=== PATIENT | female | born 1960 | race Two or more races ===

== ENCOUNTER 2020-03-12 04:06 | Emergency (ER) | payer OTHER ==
[~2020-03-12] VITALS: Ht 154.9 cm; Wt 67.3 kg
[2020-03-12 04:50] LABS: BILIRUBIN,URINE NEGATIVE (NEG); CLARITY,URINE CLEAR; COLOR,URINE YELLOW; NITRITE,URINE NEGATIVE (NEG); PH,URINE 5.5 (<5.0-8.0); PROTEIN,URINE NEGATIVE (NEG-TRACE); UROBILINOGEN,URINE 0.2 mg/dL (0.2 mg/dL)
[2020-03-12 04:54] LABS: BASO # 0.1 x10^3/uL (0.0-0.2); BASO % 1 % (0-3); EOS # 0.1 x10^3/uL (0.0-0.7); EOS % 1 % (0-3); HEMATOCRIT 38.2 % (36.0-47.0); LYMPH # 1.9 x10^3/uL (1.0-4.8); LYMPH % 20 % (24-48); MEAN CORPUSCULAR HEMOGLOBIN 30 pg (25-35); MEAN CORPUSCULAR HGB CONC 34 g/dL (31-37); MEAN CORPUSCULAR VOLUME 88 fL (79-100); MONO # 0.5 x10^3/uL (0.0-1.1); MONO % 6 % (0-9); NEUT # 7.1 x10^3/uL (1.8-7.7); NEUT % 73 % (31-73); PLATELET COUNT 216 x10^3/uL (140-400); RED BLOOD COUNT 4.33 x10^6/uL (3.50-5.40); RED CELL DISTRIBUTION WIDTH 15.2 % (11.5-14.5); WHITE BLOOD COUNT 9.7 x10^3/uL (4.0-11.0)
--- NOTE | 2020-03-12 04:56 | ED.ADGEN ---
Past Medical History Past Medical History: Other Additional Past Medical Histor: IRREGULAR HEART RHYTHM Past Surgical History: Other Additional Past Surgical Histo: HEART Smoking Status: Former Smoker Alcohol Use: None General Adult EDM: Chief Complaint: ABDOMINAL PAIN HPI: HPI: Patient is a 59 year old female coming in for low abdominal pain that woke her from sleep at 3 AM. Is the pain is sharp and midline. Denies any urinary complaints. Patient states that over the past month she has been having to strain with bowel movements having small hard bowel movements. Having daily occasional little bit of blood in rectal pain. Denies any melena. No abdominal distention, vomiting, fevers. No history of abdominal surgeries. Is on warfarin for heart problems. Review of Systems: Review of Systems: All other systems within normal limits except for as noted in the HPI Current Medications: Current Medications Medications (Trade) Dose Ordered Sig/Camilla Start Time Stop Time Status Last Admin Dose Admin Fentanyl Citrate (Fentanyl 2ml Vial) 50 mcg 1X ONCE 03/12/20 05:00 03/12/20 05:01 DC 03/12/20 04:52 50 MCG Info (CONTRAST GIVEN -- Rx MONITORING) 1 each PRN DAILY PRN 03/12/20 05:30 03/14/20 05:29 Iohexol (Omnipaque 300 Mg/ml) 75 ml 1X ONCE 03/12/20 05:30 03/12/20 05:31 DC 03/12/20 05:44 75 ML Allergies: Allergies: Allergies Coded Allergies Type Severity Reaction Last Updated Verified No Known Drug Allergies 03/12/20 No Physical Exam: PE: Constitutional: Well developed, well nourished, no acute distress, non-toxic appearance. [] HENT: Normocephalic, atraumatic, bilateral external ears normal, nose normal. [] Eyes: PERRLA, conjunctiva normal, no discharge. [] Neck: No rigidity, supple, no stridor. [] Cardiovascular: Regular rate and rhythm, brisk cap refill [] Lungs & Thorax: Non labored symmetric respirations, no tachypnea or respiratory distress [] Abdomen: Soft, nondistended, low suprapubic abdominal tenderness without guarding or rebound, negative bruits point tenderness. Skin: Warm, dry, no erythema, no rash. [] Back: Unremarkable Extremities: No deformities, range of motion grossly intact, no lower extremity edema [] Neurologic: Alert and oriented X 3, no focal deficits noted. [] Psychologic: Affect normal, judgement normal, mood normal. [] Current Patient Data: Labs: Laboratory Tests Test 03/12/20 04:16 03/12/20 04:25 Urine Collection Type Unknown Urine Color Yellow Urine Clarity Clear Urine pH 5.5 (<5.0-8.0) Urine Specific Horner 1.020 (1.000-1.030) Urine Protein Negative mg/dL (NEG-TRACE) Urine Glucose (UA) Negative mg/dL (NEG) Urine Ketones (Stick) Negative mg/dL (NEG) Urine Blood Negative (NEG) Urine Nitrite Negative (NEG) Urine Bilirubin Negative (NEG) Urine Urobilinogen Dipstick 0.2 mg/dL (0.2 mg/dL) Urine Leukocyte Esterase Small (NEG) Urine RBC Occ /HPF (0-2) Urine WBC Occ /HPF (0-4) Urine Squamous Epithelial Cells Mod /LPF Urine Bacteria Few /HPF (0-FEW) Urine Mucus Mod /LPF White Blood Count 9.7 x10^3/uL (4.0-11.0) Red Blood Count 4.33 x10^6/uL (3.50-5.40) Hemoglobin 13.0 g/dL (12.0-15.5) Hematocrit 38.2 % (36.0-47.0) Mean Corpuscular Volume 88 fL (79-100) Mean Corpuscular Hemoglobin 30 pg (25-35) Mean Corpuscular Hemoglobin Concent 34 g/dL (31-37) Red Cell Distribution Width 15.2 % (11.5-14.5) H Platelet Count 216 x10^3/uL (140-400) Neutrophils (%) (Auto) 73 % (31-73) Lymphocytes (%) (Auto) 20 % (24-48) L Monocytes (%) (Auto) 6 % (0-9) Eosinophils (%) (Auto) 1 % (0-3) Basophils (%) (Auto) 1 % (0-3) Neutrophils # (Auto) 7.1 x10^3/uL (1.8-7.7) Lymphocytes # (Auto) 1.9 x10^3/uL (1.0-4.8) Monocytes # (Auto) 0.5 x10^3/uL (0.0-1.1) Eosinophils # (Auto) 0.1 x10^3/uL (0.0-0.7) Basophils # (Auto) 0.1 x10^3/uL (0.0-0.2) Sodium Level 139 mmol/L (136-145) Potassium Level 3.3 mmol/L (3.5-5.1) L Chloride Level 106 mmol/L (98-107) Carbon Dioxide Level 22 mmol/L (21-32) Anion Gap 11 (6-14) Blood Urea Nitrogen 23 mg/dL (7-20) H Creatinine 0.8 mg/dL (0.6-1.0) Estimated GFR (Cockcroft-Gault) 73.4 BUN/Creatinine Ratio 29 (6-20) H Glucose Level 127 mg/dL (70-99) H Lactic Acid Level 0.8 mmol/L (0.4-2.0) Calcium Level 9.5 mg/dL (8.5-10.1) Total Bilirubin 0.6 mg/dL (0.2-1.0) Aspartate Amino Transferase (AST) 19 U/L (15-37) Alanine Aminotransferase (ALT) 34 U/L (14-59) Alkaline Phosphatase 86 U/L (46-116) Total Protein 7.2 g/dL (6.4-8.2) Albumin 3.5 g/dL (3.4-5.0) Albumin/Globulin Ratio 0.9 (1.0-1.7) L Lipase 159 U/L (73-393) Laboratory Tests 03/12/20 04:25 Laboratory Tests 03/12/20 04:25 Vital Signs: Vital Signs Date Time Temp Pulse Resp B/P (MAP) Pulse Ox O2 Delivery O2 Flow Rate FiO2 03/12/20 06:16 58 17 136/61 (86) 99 Room Air 03/12/20 04:20 97.7 97.7 EKG: EKG: [] Heart Score: Risk Factors: Risk Factors: DM, Current or recent (<one month) smoker, HTN, HLP, family history of CAD, obesity. Risk Scores: Score 0 - 3: 2.5% MACE over next 6 weeks - Discharge Home Score 4 - 6: 20.3% MACE over next 6 weeks - Admit for Clinical Observation Score 7 - 10: 72.7% MACE over next 6 weeks - Early Invasive Strategies Radiology/Procedures: Radiology/Procedures: IMAGING REPORT Signed PATIENT: HERNAN ENRIQUEZ ACCOUNT: [id number] : 1960 LOCATION: ER AGE: 59 SEX: F EXAM STATUS: REG ER ORD. PHYSICIAN: VIRGINIA JON MD REASON: low abd pain, OMNI 300, 75 ML IV PROCEDURE: CT ABD PELV W/ IV CONTRST ONLY CT abdomen and pelvis with contrast PQRS statement: CT scans at this facility use dose reduction including either automated exposure control, iterative reconstructions, and /or weight based radiation dosing via mA and kV modification when appropriate to reduce radiation dose to as low as reasonably achievable. Contrast: 75 mL of opaque 300 intravenous contrast. HISTORY: Lower abdominal pain. Abdomen findings: Asymmetric somewhat dependent subpleural groundglass opacity and linear densities right lower lobe. Fluid density liver cysts largest measuring 2 cm within the left lobe with a density 5 units and subcentimeter hyp odense lesions liver elsewhere which are too small to characterize due to volume averaging statistically most likely additional cysts. Gallbladder, pancreas, spleen, small accessory spleen, adrenal glands and left kidney unremarkable. Subcentimeter hypodensity right renal lower pole too small to characterize most likely a small cyst. No small bowel obstruction. Appendix is negative. There is inflammatory wall thickening and hypervascular wall enhancement throughout the large bowel and moderate volume of stool within the descending and rectosigmoid colon, likely colitis. No abdominal fluid or adenopathy. Pelvis findings: Mild rectal fecal impaction. Bladder, uterus, ovaries and bones are unremarkable. IMPRESSION: 1. Colitis with inflammatory wall thickening and enhancement of the cecum th rough the sigmoid colon. There is mild rectal fecal impaction as well. 2. The appendix is negative. 3. Asymmetric dependent subpleural right lower lobe groundglass opacity, could represent atelectasis versus lobar pneumonia. Consider follow-up CT imaging in 3-6 months to document this resolves. 4. Liver and renal cysts. Electronically signed by: Aleyda Lopez MD (03/12/2020 6:09 AM) [facility] [place] DICTATED and SIGNED BY: ALEYDA LOPEZ MD DATE: 03/12/20 [id number] 0 Course & Med Decision Making: Course & Med Decision Making Pertinent Labs and Imaging studies reviewed. (See chart for details) Concern for constipation with mild colitis and mild fecal impaction. Patient had one large bowel movement in the ED and reports relief of pain. Had 2 negative PCR tests for Covid 3 weeks ago, after patient complained of fever, malaise and fatigue, saw her pmd. U/A is contaminated but could have a uti. Right sided GGO, possible lobar pna, will tx with levaquin x 5 days (was educated on adverse effects, diarrhea, tendon rupture - most likely > 690yoa, etc). Patient is well-appearing and in no active distress. Will discharge home with strict ED return precautions were given for fever, recurrence of abdominal or back pain or nausea or vomiting. Encouraged urgent outpatient follow-up with PMD for reevaluation in the next week. Will provide GI referral. Life- threatening processes were considered but are low suspicion at this time, given history, physical exam and ED workup. Pt was educated on all prescription m edications and adverse effects. All patient's questions were answered and pt was stable at time of discharge. Life/limb-threatening differential includes but is not limited to, aortic dissection, aortic aneurysm, acute coronary syndrome, surgical abdomen (appendicitis, cholecystitis, ischemic bowel, strangulated hernia, etc), bowel obstruction or volvulus, bladder outlet obstruction, gastrointestinal bleeding, inflammatory bowel disease, peptic ulcer disease, ACS/CAD, sepsis, diverticular disease, ureterolithiasis, nephrolithiasis, ovarian torsion, ectopic , vaginal hemorrhage, or genitourinary infection. I spoken with the patient and her caregivers. I explained the patient's condition, diagnoses and treatment plan based on the information available to me at this time. I have answered the patient and her caregiver's questions and addressed any concerns. The patient and her caregivers have a good understanding of patient's diagnosis, condition and treatment plan as can be expected at this point. Vital signs have been stable. Patient's condition is stable and appropriate for discharge from the emergency department. Patient will pursue further outpatient evaluation with primary care physician or other designated or consulting physician as outlined in the discharge instructions. The patient and/or caregivers are agreeable to this plan of care and follow-up instructions have been explained in detail. The patient and/or caregivers have received these instructions in written form and have expressed an understanding of the discharge instructions. The patient and/or caregivers are aware that any significant change of condition or worsening of symptoms should prompt immediate return to this or the closest emergency department or call to [phone]. Richie Disclaimer: Richie Disclaimer: This electronic medical record was generated, in whole or in part, using a voice recognition dictation system. Departure Departure Impression: Primary Impression: Acute colitis Additional Impressions: Fecal impaction in rectum Ground glass opacity present on imaging of lung Disposition: 01 DC HOME SELF CARE/HOMELESS Condition: STABLE Referrals: DHIRAJ CARUSO MD (PCP) within 1 week for re-evaluation Patient Instructions: Colitis, Fecal Impaction, Pneumonia, Adult Additional Instructions: FOLLOW UP WITH GASTROENTEROLOGY: Gastroenterology [facility] Address: [address] [place] [id number] EMERGENCY DEPARTMENT GENERAL DISCHARGE INSTRUCTIONS Thank you for coming to [facility] Emergency Department (ED) today and trusting us with you care. We trust that you had a positive experience in our Emergency Department. If you wish to speak to the department management, you may call the Director at [phone]. YOUR FOLLOW UP INSTRUCTIONS ARE FOLLOWS: 1. Do you have a private Doctor? If you do not have a private doctor, please ask for a resource list of physicians or clinics that may be able to assist you with follow up care. 2. The Emergency Physicain has interpreted your x-rays. The X-Ray specialist will also review them. If there is a change in the findings, you will be notified in 48 hours when at all possible. 3. A lab test or culture has been done, your results will be reviewed and you will be notified if you need a change in treatment. ADDITIONAL INSTRUCTIONS AND INFORMATION: 1. Your care today has been supervised by a physician who is specially trained in emergency care. Many problems require more than one evaluation for a complete diagnosis and treatment. We recommend that you schedule your follow up appointment as recommended to ensure complete treatment of you illness or injury. If you are unable to obtain follow up care and continue to have a problem, or if your condition worsens, we recommend that you return to the ED. 2. We are not able to safely determine your condition over the phone nor are we able to give sound medical advice over the phone. For these safety reasons, if you call for medical advice we will ask you to come to the ED for further evaluation. 3. If you have any questions regarding these discharge instructions please call the ED at [phone]. SAFETY INFORMATION: In the interest of safety, wellness, and injury prevention; we encourage you to wear your sealbelt, if you smoke; quite smoking, and we encourage family to use a protective helmet for bicycling and other sporting events that present an increased risk for head injury. IF YOUR SYMPTOMS WORSEN OR NEW SYMPTOMS DEVELOP, OR YOU HAVE CONCERNS ABOUT YOUR CONDITION; OR IF YOUR CONDITION WORSENS WHILE YOU ARE WAITING FOR YOUR FOLLOW UP APPOINTMENT; EITHER CONTACT YOUR PRIMARY CARE DOCTOR, THE PHYSICIAN WHOSE NAME AND NUMBER YOU WERE GIVEN, OR RETURN TO THE ED IMMEDIATELY. Scripts Levofloxacin (LEVOFLOXACIN) 750 Mg Tablet 1 TAB PO DAILY, #5 TAB Prov: CORBY DANIELS DO 03/12/20 Problem Qualifiers VIRGINIA JON MD Mar 12, 2020 04:56 CORBY DANIELS DO Mar 12, 2020 06:37
[2020-03-12 04:58] LABS: BACTERIA,URINE FEW /HPF (0-FEW); RBC,URINE OCC /HPF (0-2); WBC,URINE OCC /HPF (0-4)
[2020-03-12] MEDS ORDERED: fentaNYL PF VIAL 100 MCG/2 ML VIAL IVP ONE (05:00)
[2020-03-12 05:01] LABS: CALCIUM 9.5 mg/dL (8.5-10.1); CREATININE 0.8 mg/dL (0.6-1.0); GFR 73.4; POTASSIUM 3.3 mmol/L (3.5-5.1)
[2020-03-12 05:07] LABS: ALBUMIN 3.5 g/dL (3.4-5.0); ALBUMIN/GLOBULIN RATIO 0.9 (1.0-1.7); TOTAL BILIRUBIN 0.6 mg/dL (0.2-1.0); TOTAL PROTEIN 7.2 g/dL (6.4-8.2)
[2020-03-12] MEDS ORDERED: IOHEXOL 300 MG/ML 100ML VIAL. IV ONE (05:30)
[2020-03-12] MEDS ORDERED: CONTRAST GIVEN. MC PRN (05:30)
--- NOTE | 2020-03-12 06:11 | RAD ---
CT abdomen and pelvis with contrast PQRS statement: CT scans at this facility use dose reduction including either automated exposure cont rol, iterative reconstructions, and /or weight based radiation dosing via mA and kV modification when appropriate to reduce radiation dose to as low as reasonably achievable. Contrast: 75 mL of opaque 300 intravenous contrast. HISTORY: Lower abdominal pain. Abdomen findings: Asymmetric somewhat dependent subpleural groundglass opacity and linear densities r ight lower lobe. Fluid density liver cysts largest measuring 2 cm within the left lobe with a density 5 units and subcentimeter hypodense lesions liver elsewhere which are too small to characterize due to volume averaging statistically most likely additional cysts. Gallbladder, pancreas, spleen, small accessory spleen, adrenal glands and left kidney unremarkable. Subcentimeter hypodensity right renal lower pole too small to characterize most likely a small cyst. No small bowel obstruction. Appendix i s negative. There is inflammatory wall thickening and hypervascular wall enhancement throughout the l arge bowel and moderate volume of stool within the descending and rectosigmoid colon, likely colitis. No abdominal fluid or adenopathy. Pelvis findings: Mild rectal fecal impaction. Bladder, uterus, ovaries and bones are unremarkable. IMPRESSION: 1. Colitis with inflammatory wall thickening and enhancement of the cecum through the sigmoid colon. There is mild rectal fecal impaction as well. 2. The appendix is negative. 3. Asymmetric dependent subpleural right lower lobe groundglass opacity, could represent atelectasis versus lobar pneumonia. Consider follow-up CT imaging in 3-6 months to document this resolves. 4. Liver and renal cysts. Electronically signed by: Sanjay Lopez MD (03/12/2020 6:09 AM) [facility]
[2020-03-12 06:27] VITALS: BP 136/93
[2020-03-12] MEDS ORDERED: LEVO750T5 PO (06:36)
== END 2020-03-12 06:45 | disposition home or self-care (01) ==
LOC: ER 04:06
DX: K56.41 Fecal impaction (principal); K52.9 Noninfective gastroenteritis and colitis, unspecified; R10.30 Lower abdominal pain, unspecified; Z87.891 Personal history of nicotine dependence; Z98.890 Other specified postprocedural states
CPT/HCPCS: 36415; 74177; 80053; 81001; 83605; 83690; 85025; 87086; 96374; 99285; J3010; Q9967